=== PATIENT | male | born 1930 | race African-American/Black ===

== ENCOUNTER 2016-05-27 20:03 | Inpatient (IN) | payer OTHER ==
[~2016-05-27] VITALS: Ht 175.3 cm; Wt 55.6 kg
--- NOTE | ~2016-05-27 | EKG ---
[address] [address] ELECTROCARDIOGRAM REPORT Name: ELIZ GRIFFIN Room #: 439-P ADM IN M.R.#: [id number] Admission: 05/27/16 Attend Phys: Aditya Soria MD Discharge: Date of : 29 Report #: [id number] THIS REPORT FOR: //name// [facility] ED Test Date: 2016-05-27 Test Time: 20:13:59 Pat Name: ELIZ GRIFFIN Department: Room: 439 Gender: M Sanitation Worker: MELANY : 1930 Requested By: Cynthia Dang Order Number: [id number] MD: Brennan Soler Measurements Intervals [place] Rate: 121 P: 0 SD: 129 QRS: 8 QRSD: 94 T: 207 QT: 365 QTc: 518 Interpretive Statements Multifocal atrial tachycardia Nonspecific ST and T-wave abnormality Prolonged QT interval No previous ECG available for comparison Electronically Signed On 05-28-2016 7:44:05 SENIOR CONTRACTS ADMINISTRATOR by Brennan Soler [email or web address] <ELECTRONICALLY SIGNED> By: Brennan Soler MD, [facility] 05/28/16 0744 12 12 Brennan Soler MD, FACC /EPI
--- NOTE | ~2016-05-27 | HC ---
[facility] [place] [address] [place] [address] CONSULTATION Name: ELIZ GRIFFIN Room #: 439-P ADM IN M.R.#: [id number] Admission: 05/27/16 Attend Phys: Aditya Soria MD Discharge: Date of : 29 Report #: [id number] THIS REPORT FOR: //name// CC: Aditya Turner INDICATION FOR CONSULTATION: Acute on top of chronic kidney disease. REASON FOR PRESENTATION: Sent via EMS from his nursing facility due to acute mental status issues. HISTORY OF PRESENT ILLNESS: Unfortunately, the patient is not able to provide me with history. It is listed that he has Alzheimer disease. He had been in the [facility] and was being treated for flu per the records. He is minimally responsive at the current time. I am not really sure what his baseline is, but it does look like that he carries a diagnosis of dementia, as I have stated. He had some change in his mental status yesterday and was brought to the emergency room for further evaluation and management, where he was found to be in acute kidney injury with high BUN, creatinine and hypernatremia. All of the information was obtained from the chart. PAST MEDICAL HISTORY: Listed under his rehab facility diagnoses: 1. Alzheimer disease. 2. Chronic kidney disease with a baseline creatinine of around 2.3 as of 2014. 3. Hyperlipidemia. 4. Type 2 diabetes mellitus. 5. Anemia. 6. Anxiety. 7. Status post right hip hemiarthroplasty after a fall. ALLERGIES: No known drug allergies listed. MEDICATIONS ON PRESENTATION: 1. MS Contin. 2. Potassium. 3. Aspirin. 4. Glipizide. 5. Lasix. 6. Lipitor. 7. Lisinopril. 8. Namenda. 9. Tamiflu. 10. Wellbutrin. 11. Metoprolol. FAMILY HISTORY: Unobtainable given the patient's mental status and the unavailability of family members. [facility] [address] [place] [address] CONSULTATION Name: ELIZ GRIFFIN Room #: 439-[facility] IN [facility].#: [id number] Admission: 05/27/16 Attend Phys: Aditya Soria MD Discharge: Date of : 29 Report #: [id number] SOCIAL HISTORY: No drug or alcohol abuse. He stays in the nursing facility. REVIEW OF SYSTEMS: Unobtainable given the patient's mental status. PHYSICAL EXAMINATION: GENERAL: The patient is disoriented, confused and minimally communicative. He is cachectic, lethargic, emaciated with extreme loss of muscle mass. HEAD AND NECK: Dry mucous membrane. CHEST: Clear to auscultation bilaterally, with no crackles. CARDIOVASCULAR: No rub detected. ABDOMEN: Soft, nontender, with no hepatosplenomegaly. LOWER EXTREMITIES: No edema, with again muscle mass loss noted. LABORATORY DATA: Laboratory values reviewed. White blood cell count 11.3. Sodium was 160; BUN is 88, down from 91 and creatinine is down to 3.7 from 4.1. ASSESSMENT, IMPRESSION AND PLAN: 1. Hypernatremia. 2. Acute kidney injury. 3. Chronic kidney disease. 4. Hypertension. 5. Alzheimer disease. 6. Leukocytosis. 7. The patient's hypernatremia and acute kidney injury is well explained by his current volume status exacerbated by decreased p.o. intake while taking Lasix. 8. Discontinue Lasix. 9. Start D5W and increase the rate of the D5W. 10. Strict input and output. 11. Cultures are still pending. 12. Continue with the treatment of his flu. 13. Continue to address his other comorbid conditions and issues. I expect that his kidney function and his sodium should start to improve in the next 24 hours. He does carry a diagnosis of chronic kidney disease and the most recent creatinine of 2.5 as of 2014. <ELECTRONICALLY SIGNED> By: Momo Urbina MD 05/28/16 1030 0956 1027 Momo Urbina MD /nt
[2016-05-27 20:03] VITALS: BP 142/106
[~2016-05-27 20:03] MED LIST: AMLODIPINE BESY10 MG PO; ARICEPT 5 MG TAB5 MG PO; ASPIR 8181 MG PO; DUONEB 2.5-0.5 M3 ML INH; GLUCOTROL5 MG PO; HYDRALAZINE 2525 MG PO; IRON325 PO; LASIX 40 MG TAB40 M2 PO; LIPITOR 20 MG T20 M1 PO; LISINOPRIL20 MG PO; NAMENDA 10 MG T10 MG PO; NOVOLOG100 UNIT/1 SUBQ; PERCOCET PO; POTASSIUM20 PO; SENOKOT-S1 TA1 PO; TOPROL XL25 MG PO; WELLBUTRIN SR150 MG PO
[2016-05-27] MEDS ORDERED: GLUCOTROL5 MG PO (20:18)
[2016-05-27] MEDS ORDERED: MILK OF MA2400 MG/10 PO (20:19)
[2016-05-27] MEDS ORDERED: TAMIFLU75 MG PO (20:20)
[2016-05-27 20:45] LABS: HEMATOCRIT 45.4 % (42.0-52.0); HEMOGLOBIN 14.6 gm/dL (14.0-18.0); MCH 27.4 pg (26.0-34.0); MCHC 32.1 % (28.0-37.0); MCV 85.3 fL (80.0-100.0); PLATELET COUNT 258 thou/uL (150-400); RBC 5.33 mil/uL (4.50-6.00); RDW 17.3 % (10.5-14.5); WBC 11.3 thou/uL (4.0-11.0)
[2016-05-27 20:47] LABS: MANUAL DIFF YES
[2016-05-27 20:58] LABS: CALCIUM 8.7 mg/dL (8.5-10.1); CREATININE 4.1 mg/dL (0.6-1.3); POTASSIUM 4.3 mmol/L (3.5-5.1)
[2016-05-27 21:07] LABS: ABSOLUTE NEUTROPHILS 10.1 thou/uL (1.4-8.2); ANISOCYTOSIS 1+; POIKILOCYTOSIS SLIGHT; POLYCHROMASIA OCCASIONAL; TOTAL CELL COUNT 100
[2016-05-27 21:41] LABS: ICTOTEST (BILI CONFIRMATORY) Negative (Negative); URINE BILIRUBIN NEGATIVE (Negative); URINE BLOOD TRACE (Negative); URINE COLOR YELLOW; URINE GLUCOSE-RANDOM* NEGATIVE (Negative); URINE KETONES NEGATIVE (Negative); URINE LEUKOCYTES-REFLEX NEGATIVE (Negative); URINE PROTEIN (DIPSTICK) 3+ (Negative); URINE SPECIFIC GRAVITY >= 1.030 (1.003-1.035); URINE UROBILINOGEN 0.2 E.U./dl (0.2-1.0)
[2016-05-27 21:49] LABS: CASTS None Seen /LPF (None Seen); CRYSTALS None Seen /LPF (None Seen); SQUAMOUS 0-3 Few /LPF (0-3)
[2016-05-27 21:55] LABS: URINE RBC 0-2 Rare /HPF (0-2); URINE WBC-REFLEX 0-5 Rare /HPF (0-5)
[2016-05-27 22:33] VITALS: BP 144/102
[2016-05-27 22:45] VITALS: BP 137/99
[2016-05-28] MEDS ORDERED: WELLBUTRIN XL300 MG PO (01:31)
[2016-05-28 03:30] VITALS: BP 145/99
[2016-05-28 03:54] LABS: CALCIUM 8.3 mg/dL (8.5-10.1); CREATININE 3.7 mg/dL (0.6-1.3); POTASSIUM 3.8 mmol/L (3.5-5.1)
[2016-05-28 08:20] VITALS: BP 145/110
[2016-05-28 16:14] VITALS: BP 137/90
[2016-05-28 20:18] VITALS: BP 118/56
[2016-05-29 02:38] VITALS: BP 139/74
[2016-05-29 08:00] VITALS: BP 130/76
[2016-05-29 11:51] LABS: HEMATOCRIT 42.5 % (42.0-52.0); HEMOGLOBIN 13.4 gm/dL (14.0-18.0); MCH 27.3 pg (26.0-34.0); MCHC 31.5 % (28.0-37.0); MCV 86.7 fL (80.0-100.0); PLATELET COUNT 244 thou/uL (150-400); RBC 4.91 mil/uL (4.50-6.00); RDW 16.9 % (10.5-14.5); WBC 11.2 thou/uL (4.0-11.0)
[2016-05-29 11:54] LABS: MANUAL DIFF YES
[2016-05-29 12:00] VITALS: BP 110/70
[2016-05-29 12:02] LABS: ALBUMIN 2.3 g/dL (3.4-5.0); CALCIUM 8.4 mg/dL (8.5-10.1); CREATININE 3.2 mg/dL (0.6-1.3); PHOSPHORUS 2.4 mg/dL (2.5-4.9); POTASSIUM 3.3 mmol/L (3.5-5.1)
[2016-05-29 12:32] LABS: ABSOLUTE NEUTROPHILS 10.1 thou/uL (1.4-8.2); ANISOCYTOSIS 1+; TOTAL CELL COUNT 100
[2016-05-29 16:00] VITALS: BP 109/65
[2016-05-29 19:45] VITALS: BP 123/80
[2016-05-30 04:27] VITALS: BP 123/56
[2016-05-30 07:40] LABS: HEMATOCRIT 41.9 % (42.0-52.0); HEMOGLOBIN 13.4 gm/dL (14.0-18.0); MCH 27.6 pg (26.0-34.0); MCHC 31.9 % (28.0-37.0); MCV 86.4 fL (80.0-100.0); RBC 4.85 mil/uL (4.50-6.00); RDW 17.2 % (10.5-14.5); WBC 11.3 thou/uL (4.0-11.0)
[2016-05-30 08:00] VITALS: BP 123/73
[2016-05-30 08:03] LABS: ALBUMIN 2.3 g/dL (3.4-5.0); CALCIUM 7.9 mg/dL (8.5-10.1); CREATININE 2.9 mg/dL (0.6-1.3); PHOSPHORUS 3.2 mg/dL (2.5-4.9)
[2016-05-30 12:00] VITALS: BP 116/77
[2016-05-30 16:00] VITALS: BP 114/90
[2016-05-30 20:00] VITALS: BP 122/80
[2016-05-31 04:00] VITALS: BP 111/72
[2016-05-31 05:55] LABS: HEMATOCRIT 38.2 % (42.0-52.0); HEMOGLOBIN 12.2 gm/dL (14.0-18.0); MCH 27.3 pg (26.0-34.0); MCHC 31.9 % (28.0-37.0); MCV 85.7 fL (80.0-100.0); RBC 4.46 mil/uL (4.50-6.00); RDW 16.7 % (10.5-14.5); WBC 10.7 thou/uL (4.0-11.0)
[2016-05-31 06:22] LABS: ALBUMIN 2.1 g/dL (3.4-5.0); CALCIUM 7.7 mg/dL (8.5-10.1); CREATININE 2.7 mg/dL (0.6-1.3); PHOSPHORUS 2.9 mg/dL (2.5-4.9)
[2016-05-31 07:49] LABS: POTASSIUM 3.4 mmol/L (3.5-5.1)
[2016-05-31 08:00] VITALS: BP 122/80
[2016-05-31 12:00] VITALS: BP 121/77
[2016-05-31 16:00] VITALS: BP 115/76
[2016-05-31 22:30] VITALS: BP 130/86
[2016-06-01 04:25] VITALS: BP 98/70
[2016-06-01 05:21] LABS: HEMATOCRIT 39.8 % (42.0-52.0); HEMOGLOBIN 12.7 gm/dL (14.0-18.0); MCH 27.6 pg (26.0-34.0); MCV 86.2 fL (80.0-100.0); RBC 4.62 mil/uL (4.50-6.00); RDW 16.7 % (10.5-14.5); WBC 10.4 thou/uL (4.0-11.0)
[2016-06-01 05:31] LABS: CALCIUM 7.3 mg/dL (8.5-10.1); CREATININE 2.5 mg/dL (0.6-1.3)
[2016-06-01 08:00] VITALS: BP 120/67
[2016-06-01 12:00] VITALS: BP 110/81
[2016-06-01] MEDS ORDERED: TAMIFLU30 MG PO (15:40)
[2016-06-01 16:00] VITALS: BP 131/70
== END 2016-06-01 16:55 | DRG 682 ==
LOC: ER 20:03 → 4S 22:07 → EROBS 22:07 → 4S 22:32
PROVIDERS: Emergency Medicine; Hospitalist; Nurse Practitioner Acute Care
DX: N17.0 Acute kidney failure with tubular necrosis (principal); G93.41 Metabolic encephalopathy; E43 Unspecified severe protein-calorie malnutrition; E87.0 Hyperosmolality and hypernatremia; I50.32 Chronic diastolic (congestive) heart failure; I13.0 Hypertensive heart and chronic kidney disease with heart failure and stage 1 through stage 4 chronic kidney disease, or unspecified chronic kidney disease; Z68.1 Body mass index [BMI] 19.9 or less, adult; G30.9 Alzheimer's disease, unspecified; F02.80 Dementia in other diseases classified elsewhere, unspecified severity, without behavioral disturbance, psychotic disturbance, mood disturbance, and anxiety; N18.4 Chronic kidney disease, stage 4 (severe); E87.6 Hypokalemia; E86.0 Dehydration; F80.82 Social pragmatic communication disorder; J09.X2 Influenza due to identified novel influenza A virus with other respiratory manifestations; E11.22 Type 2 diabetes mellitus with diabetic chronic kidney disease; Z96.641 Presence of right artificial hip joint; Z28.21 Immunization not carried out because of patient refusal
CPT/HCPCS: 10100

== ENCOUNTER 2016-08-20 12:56 | Inpatient (IN) | payer OTHER ==
[2016-08-20] VITALS (8 sets, daily range): BP systolic 97–132; BP diastolic 64–118
[~2016-08-20] VITALS: Ht 172.7 cm; Wt 63.5 kg
--- NOTE | ~2016-08-20 | HC ---
[facility] [place] [address] [place] [address] CONSULTATION Name: GABYELIZ Room #: [facility]- ADM IN M.R.#: [id number] Admission: 08/20/16 Attend Phys: Valente Nagel MD Discharge: Date of : 29 Report #: [id number] THIS REPORT FOR: //name// CC: Machelle Nagel DATE OF SERVICE: 08/20/2016 REASON FOR CONSULTATION: Hypoxemic respiratory failure. REFERRING PROVIDER: Dr. Mark, the emergency department. CHIEF COMPLAINT: Tachypnea and altered mental status. HISTORY OF PRESENT ILLNESS: Our group was asked to see the patient in consultation while hospitalized at [facility]. Case discussed with the emergency department and other healthcare providers. The patient is unable to give history, somewhat somnolent and has history of dementia. He will answer some yes/no questions. An 86-year-old male as mentioned with a history of dementia, no known pulmonary history other than recent admission 3 months ago for influenza to this institution, apparently presented to the emergency department today with complaints of increasing shortness of breath, perhaps some change in mental status, presented to the emergency department on noninvasive positive pressure ventilation with BiPAP. Chest x-ray had shown some new right lower lobe infiltrate. Apparently, he had had similar symptoms a few days ago and had a chest x-ray at a correction facility, where he resides, which also suggested an infiltrate. Unclear if he was started on any antimicrobial therapy at that time. The patient does not have any active cough at this time. Denies any pain in the chest and is resting comfortably on BiPAP. ALLERGIES: None known. OUTPATIENT MEDICATIONS: Include Bupropion, Namenda, metoprolol, amlodipine, aspirin, glipizide, atorvastatin, and lisinopril. PAST MEDICAL HISTORY: 1. Dementia. 2. Chronic renal insufficiency, baseline creatinine mid to high 2s. 3. Hypertension. 4. Hyperlipidemia. 5. Diabetes mellitus type 2. 6. Atherosclerotic peripheral vascular disease. 7. History of congestive heart failure with most recent echocardiogram showing preserved left ventricular function. 8. General debilitation. [facility] [address] [place] [address] CONSULTATION Name: ELIZ GRIFFIN Room #: 245-P [facility] IN .R.#: [id number] Admission: 08/20/16 Attend Phys: Valente Nagel MD Discharge: Date of : 29 Report #: [id number] SOCIAL HISTORY: Difficult to obtain due to his current status. FAMILY HISTORY: Difficult to obtain due to current status. REVIEW OF SYSTEMS: Difficult to obtain, but on some focused questioning, denies any headaches, unclear if he is having dysphagia. Denies any chest pain, not having dyspnea at this time while on BiPAP, denies any abdominal pain and is able to move all extremities, which is generalized weakness. Denies any focal weakness, though some of this history unreliable. PHYSICAL EXAMINATION: VITAL SIGNS: Temperature is 99.0, pulse 90 and regular, respiratory rate in the 20s, on BiPAP, and blood pressure 99/69. GENERAL: This is an elderly male, does not appear in distress, somnolent, but arousable. Will not stay alert without conscious stimulation. ENT: Not assessed due to BiPAP. NECK: Supple, no lymphadenopathy. LUNGS: Clear anteriorly, did not listen posteriorly. CARDIOVASCULAR: Heart regular. No murmurs noted. ABDOMEN: Slightly distended, but soft. Bowel sounds present. EXTREMITIES: Without edema. They were_ warm with 2+ pulses noted in the posterior tibial dorsalis pedis and radial pulses. INTEGUMENT: Without rash. No skin breakdown noted, although sacral area not evaluated. LABORATORY DATA: Chemistry profile normal except for BUN 63 and creatinine 2.8, glucose 276, calcium 7.9, troponin elevated at 1.22. ProBNP 60,470. INR 1.3. White blood cell count 11,000, hemoglobin 12, hematocrit 35, and platelet count 301. Arterial blood gas was done on BiPAP of 04/15 of the 40% FIO2 with pH 7.43, pCO2 of 31, pO2 of 108, and bicarbonate 20. Chest x-ray reveals some mild hyperinflation suggestive of possible obstructive lung disease with some mildly increased pulmonary vascular markings suggestive of pulmonary edema with right basilar infiltrate also appreciated. IMPRESSION: 1. Healthcare-associated pneumonia. Suspect that he has aspiration, we would evaluate further. 2. Acute hypoxemic respiratory failure, requiring noninvasive positive pressure ventilation. 3. Underlying dementia. 4. Pulmonary edema, suspect diastolic heart dysfunction. 5. Chronic renal insufficiency level 3/4. 6. Elevated troponin. RECOMMEND: 1. Cardiology consultation. [address] [address] CONSULTATION Name: ELIZ GRIFFIN Room #: 245-P ADM IN M.R.#: [id number] Admission: 08/20/16 Attend Phys: Valente Nagel MD Discharge: Date of : 29 Report #: [id number] 2. Diuresis. 3. Continue vancomycin and Zosyn renal dose. 4. Bronchodilators for now, but without significant bronchospasm noted, may be able to decrease frequency if the patient improves. 5. Continue noninvasive positive pressure ventilation, trial often when the patient more alert and less tachypneic. 6. Follow up arterial blood gas and chest radiograph in a.m. 7. No indication for central venous catheter at this time. We will continue with 2 peripheral IVs. Consideration for central venous catheter if the patient declines or has more difficult venous access. 8. Additional recommendations to follow. We will follow along while in ICU. By: [id number] Loki Wills MD /sarah
--- NOTE | ~2016-08-20 | 2DMMODE ---
[facility] [address] [place] [address] 2 D/M-MODE ECHOCARDIOGRAM Name: ELIZ GRIFFIN Room #: 452-P ADM IN M.R.#: [id number] Admission: 08/20/16 Attend Phys: Rosemarie Mae Discharge: Date of : 29 Date of Service: 08/22/16 0819 Report #: [id number] THIS REPORT FOR: //name// APPROVED REPORT Study performed: 08/21/2016 08:46:31 EXAM: Comprehensive 2D, Doppler, and color-flow Echocardiogram Patient Location: Bedside Room #: 245 Blood Pressure: 131/80 mmHg HR: 76 bpm Other Information Study Quality: Excellent Indications Congestive Heart Failure Diabetes Dyspnea Hypertension/HDD 2D Dimensions RVDd: 42.34 mm LVEF(%): 36.52 (>50%) IVSd: 9.59 (7-11mm) LVOT Diam: 21.52 (18-24mm) LVDd: 47.66 mm PWd: 10.78 (7-11mm) Ascending Aorta: 32.21 mm LVDs: 39.31 (25-40mm) IVC: 16.00 mm Aortic Root: 33.62 mm Garner's LVEF: 36.52 % Volumes Left Atrial Volume (Systole) Single Plane 4CH: 42.00 mL Single Plane 2CH: 93.00 mL LA ESV Index: 39.00 mL/m2 Aortic Valve AoV Peak Cipriano.: 1.28 m/s AO Peak Gr.: 6.56 mmHg LV Max P.90 mmHg LV Max: 0.69 m/s Mitral Valve E/A Ratio: 0.7 [facility] [address] [address] 2 D/M-MODE ECHOCARDIOGRAM Name: GABYELIZ Room #: 452-P [facility] IN [facility]#: [id number] Admission: 08/20/16 Attend Phys: Rosemarie Mae Discharge: Date of : 29 Date of Service: 08/22/16 0819 Report #: [id number] MV Decel. Time: 172.78 ms MV E Max Cipriano.: 0.66 m/s MV A Cipriano.: 1.00 m/s MV PHT: 50.11 ms Pulmonary Valve PV Peak Cipriano.: 0.73 m/s PV Peak Gr.: 2.12 mmHg Pulmonary Vein P Vein S: 32.0 m/s P Vein D: 23.6 m/s P Vein A Dur.: 24.4 m/s PVa Duration: 106 Tricuspid Valve TR Peak Cipriano.: 3.55 m/s RAP Estimate: 5.00 mmHg TR Peak Gr.: 50.34 mmHg Left Ventricle The left ventricle is normal size. There is normal left ventricular wall thickness. Left ventricular ejection fraction is severely decreased. LVEF is 30-35%. Grade I - abnormal relaxation pattern. Right Ventricle The right ventricle is normal size. The right ventricular systolic function is normal. Atria Left atrium is dilated. Right atrium is dilated. Aortic Valve Aortic valve is calcified. No aortic regurgitation is present. There is no aortic valvular stenosis. Mitral Valve The mitral valve is normal in structure. Trace mitral regurgitation. No evidence of mitral valve stenosis. Tricuspid Valve The tricuspid valve is normal in structure. There is mild tricuspid regurgitation. The right atrial pressure is estimated at 5 mmHg. There is moderate-severe pulmonary hypertension. The estimated PAP was 55 mmHg. Pulmonic Valve The pulmonary valve is normal in structure. There is no pulmonic [facility] [address] [place] [address] 2 D/M-MODE ECHOCARDIOGRAM Name: GABYELIZ Room #: 452-P [facility] IN [facility].#: [id number] Admission: 08/20/16 Attend Phys: Rosemarie Mae Discharge: Date of : 29 Date of Service: 08/22/16 0819 Report #: [id number] valvular regurgitation. Great Vessels The aortic root is normal in size. IVC is normal in size and collapses >50% with inspiration. Pericardium There is no pericardial effusion. <Conclusion> Left ventricular ejection fraction is severely decreased. LVEF is 30-35%. Global dysfunction Grade I - abnormal relaxation pattern. Both atria are dilated. Trileaflet, mildly sclerotic aortic valve, no aortic valvular stenosis or insufficiency. The mitral valve is normal in structure. Trace mitral regurgitation. There is moderate-severe pulmonary hypertension. The estimated PAP was 55 mmHg. There is no pericardial effusion. <ELECTRONICALLY SIGNED> By: Brennan Soler MD, [facility] 08/22/16818 8 8 Brennan Soler MD, FACC /INF
--- NOTE | ~2016-08-20 | EKG ---
[address] [place] [address] ELECTROCARDIOGRAM REPORT Name: ELIZ GRIFFIN Room #: 245- ADM IN M.R.#: [id number] Admission: 08/20/16 Attend Phys: Valente Nagel MD Discharge: Date of : 29 Report #: [id number] THIS REPORT FOR: //name// [facility] Test Date: 2016-08-21 Test Time: 01:12:23 Pat Name: ELIZ GRIFFIN Department: Room: 245 Gender: M Sr Vice President: med : 1930 Requested By: Yann Mark Order Number: [id number] MD: Brennan Soler Measurements Intervals [place] Rate: 71 P: 48 [place]: 150 QRS: 4 QRSD: 94 T: QT: 471 QTc: 512 Interpretive Statements Chaotic atrial rhythm Low voltage, extremity leads ST and T wave abnormality, consider ischemia Prolonged QT interval Compared to ECG 05/27/2016 20:13:59 ST and T wave abnormalities more pronounced QT interval has lengthened Electronically Signed On 08-21-2016 8:01:30 CDT by Brennan Soler [email or web address] <ELECTRONICALLY SIGNED> By: Brennan Soler MD, [facility] 08/21/16 0801 011 011 Brennan Soler MD, [facility] /EPI
--- NOTE | ~2016-08-20 | EKG ---
[address] [place] [address] ELECTROCARDIOGRAM REPORT Name: ELIZ GRIFFIN Room #: 245-P ADM IN M.R.#: [id number] Admission: 08/20/16 Attend Phys: Valente Nagel MD Discharge: Date of : 29 Report #: [id number] THIS REPORT FOR: //name// [facility] ED Test Date: 2016-08-20 Test Time: 13:01:19 Pat Name: ELIZ GRIFFIN Department: Room: [facility] Gender: M Payroll Analyst: KKODJOVI : 1930 Requested By: Yann Mark Order Number: [id number] MD: Brennan Soler Measurements Intervals [place] Rate: 98 P: 46 MN: 178 QRS: -24 QRSD: 98 T: 229 QT: 397 QTc: 507 Interpretive Statements Multifocal atrial tachycardia Multiform ventricular premature complexes Nonspecific ST and T wave abnormality Compared to ECG 05/27/2016 20:13:59 Ventricular premature complex(es) now present Electronically Signed On 08-21-2016 7:50:10 CDT by Brennan Soler [email or web address] <ELECTRONICALLY SIGNED> By: Brennan Soler MD, [facility] 08/21/16 0750 1301 1301 Brennan Soler MD, [facility] /EPI
--- NOTE | ~2016-08-20 | EKG ---
[address] [place] [address] ELECTROCARDIOGRAM REPORT Name: GABYELIZ Room #: 245- ADM IN M.R.#: [id number] Admission: 08/20/16 Attend Phys: Valente Nagel MD Discharge: Date of : 29 Report #: [id number] THIS REPORT FOR: //name// [facility] Test Date: 2016-08-20 Test Time: 19:12:07 Pat Name: ELIZ GRIFFIN Department: Room: 245 Gender: M Hairspring Adjuster: Rosemarie WHEELER : 1930 Requested By: Yann Mark Order Number: [id number] MD: Brennan Soler Measurements Intervals [place] Rate: 71 P: 57 [place]: 128 QRS: -7 QRSD: 99 T: 147 QT: 443 QTc: 482 Interpretive Statements Chaotic atrial rhythm Borderline low voltage, extremity leads Borderline repolarization abnormality Borderline prolonged QT interval Compared to ECG 05/27/2016 20:13:59 premature ventricular complexes are no longer present Electronically Signed On 08-21-2016 7:57:36 CDT by Brennan Soler [email or web address] <ELECTRONICALLY SIGNED> By: Brennan Soler MD, [facility] 08/21/16 0757 11 11 Brennan Soler MD, [facility] /EPI
--- NOTE | ~2016-08-20 | D ---
[facility] [place] [address] [place] [address] DISCHARGE SUMMARY Name: ELIZ GRIFFIN Room #: 452-P [facility] IN M.R.#: [id number] Admission: 08/20/16 Attend Phys: Valente Nagel MD Discharge: 08/28/16 Date of : 29 Report #: [id number] THIS REPORT FOR: //name// CC: Machelle Nagel DATE OF SERVICE: 08/28/2016 HISTORY OF PRESENT ILLNESS: The patient is an 86-year-old man with multiple medical problems, including dementia, CHF, chronic kidney disease, and hypertension, who was transferred here from the alf for shortness of breath. The patient was found to be in acute respiratory failure secondary to congestive heart failure, as well as pneumonia. Please refer to the admission H and P for details. HOSPITALIZATION COURSE: The patient was hospitalized at [facility]. He was started on appropriate treatment with broad spectrum antibiotics, as well IV diuresis. Cardiac echo was obtained, that showed ejection fraction of 35%. Laundry Tech was consulted. The patient was treated with diuresis. Later during the hospital stay, the patient developed hypernatremia. Lasix was held temporarily, and the patient was treated with gentle IV fluid hydration. Hypernatremia, resolved. The patient's condition overall improved, and oxygen was tapered off. Currently, he is in room air, and his oxygen saturation is normal. Due to multiple medical conditions and advanced dementia, the patient has major debility. He is mostly staying in the bed. His p.o. intake is poor, and he is high risk for the readmission, as well as exacerbation of his chronic conditions. Palliative care team was consulted. After discussing with the family, and given the poor prognosis, the patient's code status was changed to the DNR. Family is considering hospice care when the patient goes back to the alf. Currently, the patient's condition is acceptable for him to be transferred back to the alf. Instructions were provided to encourage p.o. intake. DISCHARGE DIAGNOSES: 1. Acute respiratory failure due to healthcare-associated pneumonia and congestive heart failure exacerbation. Resolved. 2. Congestive heart failure exacerbation, systolic congestive heart failure, now compensated. Ejection fraction is 35% based on current echo. 3. Healthcare-associated pneumonia, clinically much better. The patient is afebrile, and he is on room air. [facility] [address] [place] [address] DISCHARGE SUMMARY Name: ELIZ GRIFFIN Room #: 452-P [facility] IN [facility].#: [id number] Admission: 08/20/16 Attend Phys: Valente Nagel MD Discharge: 08/28/16 Date of : 29 Report #: [id number] 4. Chronic kidney disease stage 3. 5. Advanced dementia. 6. Diabetes mellitus type 2, treated with glipizide, which will be held for now and the patient will be continued on sliding scale insulin only as needed. 7. Severe pulmonary hypertension, pulmonary arterial pressure of 55. DISCHARGE MEDICATIONS: Please refer to the medication reconciliation list. DISPOSITION: The patient is discharged back to the alf. FOLLOWUP PLAN: Follow up with the primary care physician in 1-2 weeks. I spent about 30 minutes to coordinate the patient's discharge from the hospital. <ELECTRONICALLY SIGNED> By: Viri Juarez MD 09/01/16 2227 1316 1400 Viri Juarez MD /nt
--- NOTE | ~2016-08-20 | H ---
[facility] [place] [place] [address] HISTORY AND PHYSICAL Name: ELIZ GRIFFIN Room #: 245-P ADM IN M.R.#: [id number] Admission: 08/20/16 Attend Phys: Valente Nagel MD Discharge: Date of : 29 Report #: [id number] THIS REPORT FOR: //name// CC: Machelle Nagel DATE OF SERVICE: 08/20/2016 CHIEF COMPLAINT: Shortness of breath and hypoxia. HISTORY OF PRESENT ILLNESS: The patient is an 86-year-old male with a history of dementia, CHF, chronic kidney disease, hypertension, and diabetes who was brought into the emergency room secondary to hypoxia. Most of the history was obtained from talking to the ER physician and reviewing his notes from the nursing facility and here. The patient is presently on a BiPAP. He is able to follow some simple commands but not able to give me any good history. The patient was admitted here in May for influenza and acute on chronic renal failure. The patient had an x-ray done a couple of days ago at the senior care, which showed patchy infiltrate bilateral suggesting either pneumonia or pulmonary edema. The patient was found to be hypoxic and also tachypneic. He was brought into the emergency room and placed on a BiPAP. The patient denies any chest pain at present. Workup in the emergency room included a chest x-ray, which showed CHF and also elevated BNP in 60,000. The patient's white count is 10.9. PAST MEDICAL HISTORY: Significant for hypertension, diabetes, dementia, history of chronic kidney disease stage 3, hyperlipidemia, diabetes, depression, advanced arthrosclerotic disease, chronic pulmonary edema, anemia, muscle weakness, anxiety, constipation, edema, and a history of dysphagia too. ALLERGIES: No known drug allergy. HOME MEDICATIONS: According to the nursing note, he has been on aspirin, Norvasc, Wellbutrin, glipizide, Lipitor, lisinopril, Namenda, Toprol-XL, and magnesium hydroxide. SOCIAL HISTORY: Unable to obtain, but according to the old chart, no smoking. REVIEW OF SYSTEMS: Unable to obtain from the patient. FAMILY HISTORY: Unable to obtain. PHYSICAL EXAMINATION: VITAL SIGNS: Reviewed. Blood pressure is 102/78, heart rate of 80 per minute, afebrile, his respiratory rate is 30 per minute, he is presently on a BiPAP, he [facility] [address] [place] [address] HISTORY AND PHYSICAL Name: ELIZ GRIFFIN Room #: 245-P [facility] IN ..#: [id number] Admission: 08/20/16 Attend Phys: Valente Nagel MD Discharge: Date of : 29 Report #: [id number] is saturating 100%. GENERAL: He is currently lethargic, but he does wake up and follow simple commands. EYES: Pupils are only 2 mm, reactive to light. NECK: Supple. JVD is elevated. No bruit, no lymphadenopathy noted. CARDIOVASCULAR: S1 and S2, negative S3. There is also a soft systolic murmur in the left sternal border. CHEST: Bilateral air entry present. There are crackles noted in the right base. ABDOMEN: Soft, bowel sounds present. No mass, no organomegaly, no tenderness. PERIPHERY: There is edema over the dorsum of the feet. No calf tenderness noted. Dorsalis pedis is very feeble bilaterally. NEUROLOGIC: He does wake up and follow simple commands. He is able to move his upper extremity better than the lower extremity. LABORATORY DATA: Reviewed. His BNP is markedly elevated at 60,000. His troponin is 1.22. His AST and ALT are 34 and 17. Albumin is 2.9. BUN and creatinine are 63 and 2.8. His baseline creatinine has been around 2.5. His bicarbonate is 23. ABG showed a pH of 7.43, pCO2 of 31, pO2 of 107 on BiPAP. White count is 10.9 with a hemoglobin of 11.6. Platelet is 301. Differential ____ 86% neutrophils. UA is presently pending. EKG showed sinus rhythm with multiform ventricular premature complex, borderline left axis deviation. Borderline ST elevation anteriorly and prolonged QT interval, QTC is 507. Chest x-ray showed bilateral increasing infiltrate with some vascular congestion ____ edema. There is asymmetry greater on the right with aspiration pneumonia not excluded. ASSESSMENT AND PLAN: 1. Acute respiratory failure secondary to congestive heart failure/ pneumonia. 2. Healthcare-associated pneumonia. The patient will be started on DuoNeb, Zosyn and vancomycin. Follow cultures and adjust antibiotic as needed. Pulmonary will be consulted. 3. Congestive heart failure, most likely acute on chronic diastolic heart failure. We will check an echocardiogram. We will consult cardiology. The patient will be diuresed with IV Lasix. We will repeat a chest x-ray and labs in the morning. 4. Chronic kidney disease stage 4. We will monitor his renal function closely. 5. Elevated troponin, most likely non-ST segment elevation myocardial infarction. The patient will be placed on aspirin and Lovenox. We will consider adding beta-lacey once the blood pressure is little better. We will also obtain echocardiogram. Cardiology will be consulted. 6. Deep venous thrombosis prophylaxis. He will be continued on Lovenox. 7. Diabetes. We will place him on sliding scale insulin at present. We will check on his A1c level. [facility] [address] [place] [address] HISTORY AND PHYSICAL Name: ELIZ GRIFFIN Room #: 245-P [facility] IN M.R.#: [id number] Admission: 08/20/16 Attend Phys: Valente Nagel MD Discharge: Date of : 29 Report #: [id number] 8. We will also check on lipids. Treatment plan was discussed with the nursing staff. <ELECTRONICALLY SIGNED> By: Valente Nagel MD 08/21/16 1006 1542 1657 Valente Nagel MD /nt
[~2016-08-20 12:56] MED LIST changes: +MILK OF MA2400 MG/10 PO; +TAMIFLU30 MG PO; +TAMIFLU75 MG PO; +WELLBUTRIN XL300 MG PO
[2016-08-20 13:23] LABS: HEMATOCRIT 35.2 % (42.0-52.0); HEMOGLOBIN 11.6 gm/dL (14.0-18.0); MCH 28.7 pg (26.0-34.0); PLATELET COUNT 301 thou/uL (150-400); RBC 4.05 mil/uL (4.50-6.00); RDW 16.8 % (10.5-14.5); WBC 10.9 thou/uL (4.0-11.0)
[2016-08-20 13:27] LABS: CALCIUM 7.9 mg/dL (8.5-10.1); CREATININE 2.8 mg/dL (0.7-1.3); POTASSIUM 4.2 mmol/L (3.5-5.1)
[2016-08-20 13:28] LABS: MANUAL DIFF YES
[2016-08-20 13:38] LABS: ALBUMIN 2.9 g/dL (3.4-5.0); TOTAL BILIRUBIN 0.8 mg/dL (<0.1-1.0); TOTAL PROTEIN 7.6 g/dL (6.4-8.2)
[2016-08-20 13:39] LABS: INR 1.3; PROTIME 13.1 Seconds (9.3-11.4)
[2016-08-20 13:42] LABS: TROPONIN-I 1.22 ng/mL (<0.04-0.07)
[2016-08-20 13:42] LABS: ABG SAMPLE TYPE ARTERIAL; BE(vivo) -3.1 mmol/L (-2 to +3); HCO3 20.4 mmol/L (22.0-26.0); LACTATE 1.47 mmol/L (0.5-2.0); O2(CT) 15.9 mL/dL (15.0-23.0); O2Hb 97.2 % (92.0-98.0); PCO2 31.3 mmHg (35.0-45.0); PO2 107.6 mmHg (80.0-100.0); STICK SITE R.RADIAL; pH 7.431 (7.360-7.450); sO2 98.1 % (92.0-98.0); tCO2 21.3 mmol/L (24.0-30.0)
[2016-08-20 13:43] LABS: Pressure Support 12 cm H20; VDS BIPAP SPONT TIMED cc
[2016-08-20 14:05] LABS: ABSOLUTE NEUTROPHILS 9.4 thou/uL (1.4-8.2); ANISOCYTOSIS 1+; BURR CELLS OCCASIONAL; OVALOCYTES OCCASIONAL; POIKILOCYTOSIS 1+; POLYCHROMASIA SLIGHT; TOTAL CELL COUNT 100
[2016-08-20 16:30] LABS: CHOLESTEROL 99 mg/dL (<200); HDL CHOLESTEROL 42 mg/dL (>40); LDL CHOLESTEROL 43 mg/dL (<100); TC:HDL 2.4 Ratio (Not establshd); TRIGLYCERIDE 71 mg/dL (<150); VLDL 14 mg/dL (<40)
[2016-08-20 21:06] LABS: URINE BILIRUBIN NEGATIVE (Negative); URINE BLOOD 3+ (Negative); URINE COLOR YELLOW; URINE GLUCOSE-RANDOM* NEGATIVE (Negative); URINE KETONES NEGATIVE (Negative); URINE NITRITE NEGATIVE (Negative); URINE PROTEIN (DIPSTICK) TRACE (Negative); URINE UROBILINOGEN 0.2 E.U./dl (0.2-1.0)
[2016-08-20 21:21] LABS: SQUAMOUS 0-3 Few /LPF (0-3)
[2016-08-20 21:22] LABS: COARSE GRANULAR CASTS 0-3 Few /LPF (None Seen); HYALINE CASTS 4-10 Moderate /LPF (None Seen); URINE WBC 6-15 Few /HPF (0-5)
[2016-08-21] VITALS (20 sets, daily range): BP systolic 100–134; BP diastolic 63–93
[2016-08-21 00:33] LABS: MAGNESIUM 2.8 mg/dL (1.8-2.4)
[2016-08-21 00:40] LABS: TROPONIN-I 0.92 ng/mL (<0.04-0.07)
[2016-08-21 04:37] LABS: HEMATOCRIT 31.2 % (42.0-52.0); HEMOGLOBIN 10.1 gm/dL (14.0-18.0); MCH 28.3 pg (26.0-34.0); MCHC 32.3 g/dL (28.0-37.0); MCV 87.7 fL (80.0-100.0); RBC 3.55 mil/uL (4.50-6.00); RDW 16.9 % (10.5-14.5); WBC 9.4 thou/uL (4.0-11.0)
[2016-08-21 05:18] LABS: CALCIUM 7.4 mg/dL (8.5-10.1); CREATININE 2.9 mg/dL (0.7-1.3); POTASSIUM 3.9 mmol/L (3.5-5.1)
[2016-08-21 05:21] LABS: ABG SAMPLE TYPE ARTERIAL; BE(vivo) -3.7 mmol/L (-2 to +3); HCO3 20.4 mmol/L (22.0-26.0); O2(CT) 15.2 mL/dL (15.0-23.0); O2Hb 96.4 % (92.0-98.0); PCO2 33.9 mmHg (35.0-45.0); PO2 103.5 mmHg (80.0-100.0); STICK SITE L.BRACHIAL; pH 7.398 (7.360-7.450); sO2 97.8 % (92.0-98.0); tCO2 21.5 mmol/L (24.0-30.0)
[2016-08-21 05:22] LABS: ABG COMMENT BIPAP12/6 8 35%; Pressure Support 12 cm H20
[2016-08-22 03:49] LABS: HEMATOCRIT 36.1 % (42.0-52.0); HEMOGLOBIN 11.6 gm/dL (14.0-18.0); MCHC 32.2 g/dL (28.0-37.0); MCV 87.1 fL (80.0-100.0); PLATELET COUNT 320 thou/uL (150-400); RBC 4.15 mil/uL (4.50-6.00); RDW 17.1 % (10.5-14.5); WBC 10.6 thou/uL (4.0-11.0)
[2016-08-22 04:00] VITALS: BP 126/84
[2016-08-22 04:00] LABS: MANUAL DIFF YES
[2016-08-22 04:04] LABS: CALCIUM 7.5 mg/dL (8.5-10.1); CREATININE 2.7 mg/dL (0.7-1.3); MAGNESIUM 2.5 mg/dL (1.8-2.4); POTASSIUM 3.3 mmol/L (3.5-5.1)
[2016-08-22 04:51] LABS: ABSOLUTE NEUTROPHILS 8.4 thou/uL (1.4-8.2); ANISOCYTOSIS 1+; TOTAL CELL COUNT 100
[2016-08-22 07:50] VITALS: BP 132/72
[2016-08-22 11:09] VITALS: BP 122/79
[2016-08-22 15:53] VITALS: BP 127/83
[2016-08-22 19:35] VITALS: BP 115/82
[2016-08-22 22:10] LABS: INFLUENZA B Negative (Negative); METAPNEUMOVIRUS Negative (Negative)
[2016-08-23 03:50] VITALS: BP 121/67
[2016-08-23 07:33] VITALS: BP 144/85
[2016-08-23 08:02] LABS: HEMATOCRIT 39.3 % (42.0-52.0); HEMOGLOBIN 12.6 gm/dL (14.0-18.0); MCH 27.9 pg (26.0-34.0); MCHC 32.1 g/dL (28.0-37.0); MCV 86.9 fL (80.0-100.0); PLATELET COUNT 342 thou/uL (150-400); RBC 4.53 mil/uL (4.50-6.00); RDW 16.9 % (10.5-14.5); WBC 12.3 thou/uL (4.0-11.0)
[2016-08-23 08:05] LABS: MANUAL DIFF YES
[2016-08-23 08:12] LABS: CALCIUM 8.6 mg/dL (8.5-10.1); CREATININE 2.5 mg/dL (0.7-1.3); POTASSIUM 3.7 mmol/L (3.5-5.1)
[2016-08-23 08:30] LABS: ABSOLUTE NEUTROPHILS 10.3 thou/uL (1.4-8.2); POLYCHROMASIA OCCASIONAL; TOTAL CELL COUNT 100
[2016-08-23 08:31] LABS: ANISOCYTOSIS 1+
[2016-08-23 11:38] VITALS: BP 125/67
[2016-08-23 16:30] VITALS: BP 111/75
[2016-08-23 19:00] VITALS: BP 124/83
[2016-08-24 03:37] VITALS: BP 142/77
[2016-08-24 05:43] LABS: CALCIUM 8.1 mg/dL (8.5-10.1); CREATININE 2.7 mg/dL (0.7-1.3)
[2016-08-24 08:38] VITALS: BP 102/63
[2016-08-24 11:11] VITALS: BP 117/78
[2016-08-24 15:46] VITALS: BP 131/74
[2016-08-24 20:16] VITALS: BP 132/80
[2016-08-25 04:40] VITALS: BP 136/85
[2016-08-25 05:48] LABS: CALCIUM 8.3 mg/dL (8.5-10.1); CREATININE 2.5 mg/dL (0.7-1.3); POTASSIUM 3.4 mmol/L (3.5-5.1)
[2016-08-25 07:30] VITALS: BP 156/87
[2016-08-25 12:20] VITALS: BP 107/76
[2016-08-25 15:55] VITALS: BP 101/66
[2016-08-26 03:49] VITALS: BP 143/88
[2016-08-26 05:34] LABS: ABSOLUTE NEUTROPHILS 8.2 thou/uL (1.4-8.2); BASOPHILS 1.2 % (0.0-2.0); EOSINOPHILS 6.2 % (0.0-3.0); HEMATOCRIT 38.5 % (42.0-52.0); HEMOGLOBIN 12.2 gm/dL (14.0-18.0); LYMPHOCYTES 12.8 % (24.0-44.0); MCH 27.5 pg (26.0-34.0); MCHC 31.6 g/dL (28.0-37.0); MCV 87.1 fL (80.0-100.0); PLATELET COUNT 385 thou/uL (150-400); POLYS 73.8 % (36.0-66.0); RBC 4.42 mil/uL (4.50-6.00); RDW 16.9 % (10.5-14.5); WBC 11.1 thou/uL (4.0-11.0)
[2016-08-26 05:40] LABS: MANUAL DIFF NO
[2016-08-26 05:50] LABS: CALCIUM 8.4 mg/dL (8.5-10.1); CREATININE 2.2 mg/dL (0.7-1.3)
[2016-08-26 05:59] LABS: POTASSIUM 2.7 mmol/L (3.5-5.1)
[2016-08-26 08:10] VITALS: BP 138/87
[2016-08-26 12:09] VITALS: BP 136/80
[2016-08-26 16:19] VITALS: BP 127/56
[2016-08-26 20:26] VITALS: BP 123/88
[2016-08-27 04:59] VITALS: BP 143/86
[2016-08-27 06:23] LABS: CALCIUM 8.2 mg/dL (8.5-10.1); CREATININE 2.1 mg/dL (0.7-1.3); POTASSIUM 3.6 mmol/L (3.5-5.1)
[2016-08-27 08:45] VITALS: BP 129/76
[2016-08-27 12:24] VITALS: BP 124/86
[2016-08-27 15:54] VITALS: BP 130/89
[2016-08-27 19:49] VITALS: BP 144/94
[2016-08-28 04:26] VITALS: BP 139/88
[2016-08-28 06:40] LABS: CALCIUM 7.9 mg/dL (8.5-10.1); CREATININE 1.8 mg/dL (0.7-1.3); POTASSIUM 3.6 mmol/L (3.5-5.1)
[2016-08-28 08:42] VITALS: BP 136/82
[2016-08-28 12:44] VITALS: BP 134/97
[2016-08-28] MEDS ORDERED: CARVEDILOL3.125 MG PO (13:21)
[2016-08-28] MEDS ORDERED: VIBRAMYCIN 100100 M2 PO (13:21)
[2016-08-28] MEDS ORDERED: DUONEB 2.5-0.5 M3 ML INH (13:21)
[2016-08-28] MEDS ORDERED: HUMALOG100 UNIT/1 SUBQ (13:21)
[2016-08-28] MEDS ORDERED: AMLODIPINE BESYL5 M1 PO (13:21)
[2016-08-28] MEDS ORDERED: AUGMENTIN 500-1 EACH PO (13:21)
== END 2016-08-28 16:59 | DRG 177 ==
LOC: ER 12:56 → ICU 14:27 → EROBS 14:27 → ICU 16:00 → 4W 08-21 18:33
PROVIDERS: Emergency Medicine; Family Medicine; Internal Medicine; Internal Medicine Endocrinology, Diabetes & Metabolism; Internal Medicine Pulmonary Disease
PROC: 5A09357 Assistance with Respiratory Ventilation, Less than 24 Consecutive Hours, Continuous Positive Airway Pressure (ICD-10-PCS; principal; 2016-08-20)
DX: J69.0 Pneumonitis due to inhalation of food and vomit (principal); J96.01 Acute respiratory failure with hypoxia; I50.43 Acute on chronic combined systolic (congestive) and diastolic (congestive) heart failure; E43 Unspecified severe protein-calorie malnutrition; I13.0 Hypertensive heart and chronic kidney disease with heart failure and stage 1 through stage 4 chronic kidney disease, or unspecified chronic kidney disease; E87.0 Hyperosmolality and hypernatremia; N18.4 Chronic kidney disease, stage 4 (severe); N17.9 Acute kidney failure, unspecified; G30.9 Alzheimer's disease, unspecified; F02.80 Dementia in other diseases classified elsewhere, unspecified severity, without behavioral disturbance, psychotic disturbance, mood disturbance, and anxiety; E78.5 Hyperlipidemia, unspecified; E11.22 Type 2 diabetes mellitus with diabetic chronic kidney disease; F32.9 Major depressive disorder, single episode, unspecified; F41.9 Anxiety disorder, unspecified; K59.00 Constipation, unspecified; E11.51 Type 2 diabetes mellitus with diabetic peripheral angiopathy without gangrene; R53.81 Other malaise; I27.2 Other secondary pulmonary hypertension; E87.6 Hypokalemia; Z68.21 Body mass index [BMI] 21.0-21.9, adult
CPT/HCPCS: 10045; 10078

== ENCOUNTER 2016-09-14 06:06 | Inpatient (IN) | payer OTHER ==
[~2016-09-14] VITALS: Ht 175.3 cm; Wt 68.7 kg
--- NOTE | ~2016-09-14 | HC ---
[facility] [place] [address] CONSULTATION Name: CARLOTA GRIFFINR Room #: 450-P ADM IN M.R.#: [id number] Admission: 09/14/16 Attend Phys: Machelle Turner MD Discharge: Date of : 29 Report #: [id number] THIS REPORT FOR: //name// CC: Machelle Turner DATE OF SERVICE: 09/14/2016 REASON FOR CONSULTATION: Acute respiratory failure. Forty minutes critical care time. IMPRESSION: 1. Acute respiratory failure. 2. Probable aspiration pneumonia. 3. Metabolic acidosis/lactic acidosis. 4. Hyperchloremia. 5. Acute on chronic renal failure. 7. Elevated troponin. 8. Anemia, normocytic. 9. Large left middle cerebral artery infarct. 10. History of MRSA. 11. Severe pulmonary hypertension. 12. Cardiomyopathy with acute on chronic congestive heart failure. 13. Diabetes. 14. Dementia. PLAN: Discussed with the family by phone and nursing. We will try BiPAP and antibiotics. We will ensure he is comfortable. When I arrived, he was a do not intubate. Because of his status, I feel intubation would be a vital part of his resuscitation and we will do a do not resuscitate at this time. We will keep him on our critical care telemetry unit. HISTORY OF PRESENT ILLNESS: An 86-year-old male with history of dementia, old nodes reviewed, recently discharged with healthcare-associated pneumonia, MRSA nasal, pulmonary hypertension, CHF, CKD, diabetes, comes in through the Emergency Room today with found to have right side flaccid. The patient is unable to give history at this time. Per chart, home meds, I believe include DuoNeb, Coreg, insulin, metoprolol, aspirin. SOCIAL HISTORY: Per chart. FAMILY HISTORY: Not obtainable at this time. REVIEW OF SYSTEMS: Positive per dementia, hypertension, hyperlipidemia, diabetes, CHF, debilitation. [facility] [address] [place] [address] CONSULTATION Name: ELIZ GRIFFIN Room #: 450-P [facility] IN [facility]#: [id number] Admission: 09/14/16 Attend Phys: Machelle Turner MD Discharge: Date of : 29 Report #: [id number] PHYSICAL EXAMINATION: VITAL SIGNS: The patient is tachypneic, temperature 98.7, pulse 99, blood pressure 178/109. Not moving right side. LUNGS: Tachypneic, coarse. HEART: Tachy. ABDOMEN: Bowel sounds present. Soft. EXTREMITIES: Showed no edema. LABORATORY DATA: White count 7.3, hemoglobin 12.3. INR 1.2. BUN 38, creatinine 2.3. ABG ____, pCO2 of 23, pO2 of 40. Respiratory rate 16 on 2.5 liters. We will follow closely with you. <ELECTRONICALLY SIGNED> By: Dave Keane MD 09/16/16 2316 2219 0244 Dave Keane MD /sarah
--- NOTE | ~2016-09-14 | HC ---
[facility] [place] [address] [place] [address] CONSULTATION Name: GABYELIZ Room #: 450-P ADM IN M.R.#: [id number] Admission: 09/14/16 Attend Phys: Machelle Turner MD Discharge: Date of : 29 Report #: [id number] THIS REPORT FOR: //name// CC: Machelle Turner HISTORY OF PRESENT ILLNESS: The patient is an 86-year-old gentleman, who was transferred from the [facility] after it was noted that he had right-sided weakness. The patient came to the Emergency Room and I received a call approximately 4 hours into the event. The call was received from the Emergency Room physician. The initial CT scan of the head demonstrated only moderate atrophy, but no acute cerebral process. Review of the Emergency Room physician's note states that his sister who was his DPOA refused TPA for the patient. The patient's great nephew is at the bedside. He states that the patient's eldest sister who turned 100 this July is the DPOA for the patient. Apparently, the patient had dementia and had been living in a [facility]. The patient is unable to give any history at this time. PAST MEDICAL HISTORY: Alzheimer disease, chronic renal insufficiency, hypertension, hyperlipidemia, non-insulin dependent diabetes. FAMILY HISTORY: Unknown. MEDICATIONS: At home included bupropion XL 300 mg daily, Namenda 10 mg b.i.d., aspirin 81 mg daily, atorvastatin 20 mg daily, milk of magnesia 30 mL daily, Metoprolol XL 25 mg daily, amlodipine 10 mg daily, and glipizide 5 mg daily. ALLERGIES: None. PHYSICAL EXAMINATION: VITAL SIGNS: Temperature is 36.5, pulse rate 86, respiratory rate 28, respiratory pattern labored, blood pressure 120/90 and pulse oximetry 94 on 2 liters nasal cannula. NEUROLOGIC: Cranial nerves demonstrate deviation of the eyes to the left. Motor exam demonstrates no movement of the right upper and lower extremity, they are flaccid. Reflexes are symmetrical; however, the right plantar response is extensor and the left is flexor. Coordination and gait cannot be tested. LABORATORY DATA: Hematology: White blood cell count 7.3, hemoglobin 12.8, hematocrit 38.8, MCV 87, and platelet count 286,000. INR 1.2. Urinalysis 2+ protein, 1+ bilirubin. Chemistry: Sodium 144, potassium 3.8, chloride 110, carbon dioxide 23, BUN 38, creatinine 2.3, GFR 33, glucose 172, and calcium 8.8. ASSESSMENT: Although, the initial CT of the head was unremarkable for an acute process, the patient appears to have had a large left middle cerebral artery infarct. A CT scan of the head will be ordered for tomorrow. The patient [address] [address] CONSULTATION Name: ELIZ GRIFFIN Room #: 450-P [facility] IN M.R.#: [id number] Admission: 09/14/16 Attend Phys: Machelle Turner MD Discharge: Date of : 29 Report #: [id number] should have carotid ultrasound and echocardiogram. At this point, he is a full code. I spoke to his great nephew who is at the bedside and explained that we would know more within the next 48 hours as to how the patient would do, but I did explain that given the examination, I doubted the patient would make a significant recovery. Hopefully, I will be able to speak to his DPOA tomorrow and explain this. I thank you for your kind referral of the patient and we will continue to follow him with you. It should be discussed with his DPOA, so that she understands that although the patient may survive this event <ELECTRONICALLY SIGNED> By: Elida Riddle DO 09/17/16 1024 1119 2333 Elida Riddle DO /nt
--- NOTE | ~2016-09-14 | 2DMMODE ---
[facility] [place] [address] 2 D/M-MODE ECHOCARDIOGRAM Name: CARLOTA GRIFFINR Room #: 450-P ADM IN M.R.#: [id number] Admission: 09/14/16 Attend Phys: Machelle Turner MD Discharge: Date of : 29 Date of Service: 09/15/16 1021 Report #: [id number] THIS REPORT FOR: //name// APPROVED REPORT Study performed: 09/15/2016 08:38:44 EXAM: Limited 2D, Doppler, and color-flow Echocardiogram Patient Location: Bedside Room #: 450 Blood Pressure: 123/77 mmHg HR: 87 bpm Rhythm: NSR, frequent PVC's Other Information Study Quality: Adequate/Limited patient mobility, patient on BiPAP Indications CVA. Hx: CHF, CM, HTN, HLP, DM. (Complete echo done 08/25/16) Echo Enhancing Agent Indication: Rule out Shunt Agent/Amount Used: Agitated Saline cc 2D Dimensions LVEF(%): 26.59 (>50%) LVDd: 48.18 mm LVDs: 42.23 (25-40mm) Garner's LVEF: 26.59 % Tricuspid Valve TR Peak Cipriano.: 3.60 m/s RAP Estimate: 10.00 mmHg TR Peak Gr.: 51.90 mmHg RVSP: 62.00 mmHg Left Ventricle Left ventricle is grossly normal size. Left ventricular systolic function is severely decreased. LVEF is 25-30%. Right Ventricle Right ventricle is hypokinetic. [facility] [address] [place] [address] 2 D/M-MODE ECHOCARDIOGRAM Name: ELIZ GRIFFIN Room #: 450-P ADM IN M.R.#: [id number] Admission: 09/14/16 Attend Phys: Machelle Turner MD Discharge: Date of : 29 Date of Service: 09/15/16 1021 Report #: [id number] Left atrium is dilated. Injection of bubbles documented an interatrial shunt. Right atrium is dilated. Aortic Valve Aortic valve is calcified. Trace aortic regurgitation. Mitral Valve The mitral valve is mildly thickened. Mild mitral regurgitation. Tricuspid Valve The tricuspid valve is normal in structure. There is mild to moderate tricuspid regurgitation. The right atrial pressure is estimated at 10 mmHg. There is moderate pulmonary hypertension with an estimated PAP of 62mmHg. Great Vessels IVC is normal in size and collapses <50% with inspiration. Pericardium There is no pericardial effusion. <Conclusion> Left ventricle is grossly normal size. LVEF is 25-30%. Right ventricle is hypokinetic. Left atrium is dilated. Right atrium is dilated. Injection of bubbles documented an interatrial shunt. Aortic valve is calcified. Trace aortic regurgitation. The mitral valve is mildly thickened. Mild mitral regurgitation. The tricuspid valve is normal in structure. There is mild to moderate tricuspid regurgitation. The right atrial pressure is estimated at 10 mmHg. There is moderate pulmonary hypertension with an estimated PAP of 62mmHg. <ELECTRONICALLY SIGNED> By: Luis Enrique Ramos MD 09/15/16 1021 1021 1021 Luis Enrique Ramos MD /INF
--- NOTE | ~2016-09-14 | H ---
[facility] [place] [place] [address] HISTORY AND PHYSICAL Name: ELIZ GRIFFIN Room #: 450-P ADM IN M.R.#: [id number] Admission: 09/14/16 Attend Phys: Machelle Turner MD Discharge: Date of : 29 Report #: [id number] THIS REPORT FOR: //name// CC: Machelle Turner DATE OF SERVICE: 09/14/2016 DATE OF ADMISSION: 09/14/2016 CHIEF COMPLAINT: Altered mental status, possible CVA. HISTORY OF PRESENT ILLNESS: The patient is an 86-year-old -Irish male who resides at [facility]. He has had several hospital stays in the past month for pneumonia and most recently urinary tract infection. He was doing relatively well while at the retirement until the morning of admission when he was noted to have altered mental status with right-sided deficits. He was brought to [facility] Emergency Room for evaluation of possible CVA. Workup revealed findings consistent with acute CVA. The family was contacted about possible thrombolysis, and they had opted to forego aggressive thrombolytic therapy. He was given aspirin and has been admitted for further medical management. PAST MEDICAL HISTORY: Anemia of chronic kidney disease stage 3, anxiety disorder, Alzheimer's dementia, atherosclerotic heart disease, congestive heart failure, hypertension, hyperlipidemia, protein-calorie malnutrition, diabetes mellitus type 2 with underlying chronic kidney disease, major depressive disorder and oropharyngeal dysphagia requiring pureed diet with nectar-thickened liquids. ALLERGIES: No known drug allergies. MEDICATIONS: DuoNeb nebulized treatments every 6 hours as needed, Lipitor 20 mg daily, lisinopril 20 mg daily, milk of magnesia 30 mL daily, Namenda 10 mg b.i.d., Toprol-XL 24 mg daily, amlodipine 10 mg daily, aspirin 81 mg daily, bupropion XL 300 mg daily, glipizide 5 mg daily. FAMILY HISTORY: Noncontributory. SOCIAL HISTORY: The patient resides at [facility]. He does not use tobacco or alcohol. REVIEW OF SYSTEMS: Review of systems cannot be elicited at this time; however, he is well known to me as he is in my patient at the retirement, and I had just seen him most recently as Thursday. GENERAL: He has been declining for the past several months. [address] [address] HISTORY AND PHYSICAL Name: ELIZ GRIFFIN Room #: [address] [place] [address] IN M.R.#: [id number] Admission: 09/14/16 Attend Phys: Machelle Turner MD Discharge: Date of : 29 Report #: [id number] HEENT: Negative. CARDIOVASCULAR: Negative. PULMONARY: Negative. GASTROINTESTINAL: On a pureed diet, nectar-thickened liquids. GENITOURINARY: Incontinent. MUSCULOSKELETAL: Wheelchair bound, but able to transfer independently. NEUROLOGIC: Forgetful due to underlying dementia. LYMPHATICS: Negative. PHYSICAL EXAMINATION: GENERAL: The patient is a frail, elderly -Irish male lying in bed in no apparent distress. VITAL SIGNS: Most recent vital signs reveal temperature of 35.6, pulse of 86, his respiratory rate ranges from 24-32 respirations per minute, blood pressure is 134/92 with oxygen saturation 90%. HEENT: Head is normocephalic, atraumatic. Pupils are equal and reactive. Extraocular muscles are intact. Oropharynx is moist. NECK: Supple. Trachea midline. LUNGS: Grossly clear. CARDIOVASCULAR: Regular rate and rhythm. ABDOMEN: Soft, nontender, nondistended with normoactive bowel sounds. SKIN: Warm and dry. Turgor adequate. LYMPHATICS: No cervical or axillary lymphadenopathy. NEUROLOGIC: He opens his eyes and grunts when questioned as an attempted verbal response with noted right facial droop and right upper and lower extremity deficits. MUSCULOSKELETAL: Chronic degenerative changes, generalized muscular atrophy with 4/5 strength in his left upper and lower extremities and 0/5 strength in his right upper and lower extremities. LABORATORY DATA: Pertinents include chloride of 110, BUN 38, creatinine 2.3, GFR of 33. Troponin 0.12. INR is 1.2. Cholesterol is 109, triglycerides 74, LDL was 40. Hemoglobin is 12.3, hematocrit is 28.8. RADIOGRAPHIC STUDIES: Include CT of the head without contrast showing moderate atrophy without acute cerebral process. Carotid Doppler showing mild right and moderate left bilateral atherosclerotic plaquing without hemodynamically significant stenosis. Portable chest x-ray demonstrated decreased inspiration with diffuse increased chest density suggesting diffuse atelectasis. Possibility of bilateral pneumonitis should also be considered based on findings. ASSESSMENT: 1. Acute left hemispheric cerebrovascular accident with dense right hemiplegia. 2. Hypertension. [address] [address] HISTORY AND PHYSICAL Name: ELIZ GRIFFIN Room #: 450-[facility] IN M.R.#: [id number] Admission: 09/14/16 Attend Phys: Machelle Turner MD Discharge: Date of : 29 Report #: [id number] 3. Oropharyngeal dysphagia. 4. Diabetes mellitus. 5. Alzheimer dementia. PLAN: Continue supportive measures with IV fluids. We will give aspirin suppository. Continue to monitor his blood pressure and initiate Catapres patch for blood pressure control. Continue to monitor his blood sugars. We will hold insulin and given sliding scale insulin as needed. We will apply SCDs for DVT prophylaxis. A lengthy discussion was held with his sister/durable power of city attorney, Ms. Maria Esther Simeon, at phone number [phone]. Discussion was made regarding code status and advanced directive. She states that he does not have advanced directive at this time; however, she prefers that we continue CPR, but do not intubate without plans for any further aggressive treatment. We will honor her wishes and make him full code without intubation. <ELECTRONICALLY SIGNED> By: Machelle Turner MD 09/18/16 1522 1622 01 Machelle Turner MD /nt
--- NOTE | ~2016-09-14 | D ---
[facility] [place] [place] [address] DISCHARGE SUMMARY Name: GABYELIZ Room #: 450-P [facility] IN M.R.#: [id number] Admission: 09/14/16 Attend Phys: Machelle Turner MD Discharge: 09/20/16 Date of : 29 Report #: [id number] THIS REPORT FOR: //name// CC: Machelle Turner MD DATE OF SERVICE: 09/20/2016 Discharge/ Summary SUMMARY OF HISTORY AND PHYSICAL: The patient presented with right-sided deficits and was thought to have a stroke. In the Emergency Room, an acute stroke was confirmed. The family was contacted about consideration for thrombolysis, which they declined. He was given aspirin instead and admitted for further medical management. He had a baseline Alzheimer dementia. Hospital Course: e was seen in Neurology consultation by Dr. Riddle. It was her opinion that he had a large left middle cerebral artery stroke. Dr. Riddle discussed the doubt that he would make a significant recovery, when she talked with the patient's nephew at the time of her consultation. She also noted that he had a baseline Alzheimer dementia. He developed an aspiration pneumonia and acute respiratory failure and was treated with BiPAP under the direction of the Pulmonary service. He improved with BiPAP, which was able to be removed on 09/20/2016. However, his breathing got worse in the middle of the night and BiPAP was restarted. Dr. Riddle noted when she visited him 09/20/2016 that he was struggling to breathe and was breathing at a rate of 53 despite the BiPAP support. He discussed his situation with very poor chance of significant improvement with his sister who is his DPOA. She was amenable to hospice. A second sister was also contacted by the nursing staff. Both sisters wanted nature to take its course, not to use life support and for their brother to be comfortable. I spoke by phone with his nephew, the son of his sister that was his DPOA. He agreed that, both he and his mother felt keeping him comfortable and "letting nature take it's course" were their wishes on his behalf. Hospice palliative care service was consulted. They ordered the BiPAP removed and lorazepam and Roxanol be administered for comfort. He soon thereafter, indicating how much he was relying on the BiPAP. DISCHARGE DIAGNOSES: 1. Acute large left middle cerebral artery stroke. [address] [address] DISCHARGE SUMMARY Name: CARLOTA GRIFFINR Room #: 450-P DIS IN [facility].#: [id number] Admission: 09/14/16 Attend Phys: Machelle Turner MD Discharge: 09/20/16 Date of : 29 Report #: [id number] 2. Acute respiratory failure. 3. Aspiration pneumonia. 4. Baseline Alzheimer disease. 5. Sepsis with lactic acidosis. 6. Type 2 diabetes. 7. Chronic systolic congestive heart failure. 8. Chronic kidney disease stage 4. 9. Atherosclerotic heart disease. 10. Severe pulmonary artery hypertension. By: 0010 0207 Arcadio Goetz MD /nt
--- NOTE | ~2016-09-14 | EKG ---
[address] [address] ELECTROCARDIOGRAM REPORT Name: ELIZ GRIFFIN Room #: 450-P ADM IN M.R.#: [id number] Admission: 09/14/16 Attend Phys: Machelle Turner MD Discharge: Date of : 28 Report #: [id number] THIS REPORT FOR: //name// [facility] ED Test Date: 2016-09-14 Test Time: 06:43:02 Pat Name: EILZ GRIFFIN Department: Room: 450 Gender: M Computer Game Programmer: CIRILO : 1930 Requested By: Jori Lott Order Number: [id number] MD: Monty Braswell Measurements Intervals [place] Rate: 89 P: MA: QRS: -11 QRSD: 97 T: 132 QT: 469 QTc: 571 Interpretive Statements Normal sinus rhythm No ischemic changes Electronically Signed On 09-14-2016 22:36:42 CDT by Monty Braswell [email or web address] <ELECTRONICALLY SIGNED> By: Monty Braswell MD 09/14/16 [id number] MD MADHURI Noble
[~2016-09-14 06:06] MED LIST changes: +AMLODIPINE BESYL5 M1 PO; +AUGMENTIN 500-1 EACH PO; +CARVEDILOL3.125 MG PO; +HUMALOG100 UNIT/1 SUBQ; +VIBRAMYCIN 100100 M2 PO
[2016-09-14 06:31] LABS: POC CA IONIZED 4.3 mg/dL (4.5-5.3); POC CREATININE 2.1 mg/dL (0.6-1.3); POC HEMOGLOBIN 12.9 g/dL (14.0-18.0); POC POTASSIUM 3.8 mmol/L (3.5-5.1)
[2016-09-14 06:41] LABS: HEMATOCRIT 38.8 % (42.0-52.0); HEMOGLOBIN 12.3 gm/dL (14.0-18.0); MCH 27.6 pg (26.0-34.0); MCHC 31.7 g/dL (28.0-37.0); RBC 4.46 mil/uL (4.50-6.00); RDW 17.2 % (10.5-14.5); WBC 7.3 thou/uL (4.0-11.0)
[2016-09-14 06:55] LABS: CALCIUM 8.8 mg/dL (8.5-10.1); CREATININE 2.3 mg/dL (0.7-1.3); POTASSIUM 3.8 mmol/L (3.5-5.1)
[2016-09-14 06:56] LABS: APTT 28.2 Seconds (24.5-32.8); INR 1.2; PROTIME 12.8 Seconds (9.3-11.4)
[2016-09-14 07:00] LABS: URINE BILIRUBIN 1+ (Negative); URINE BLOOD NEGATIVE (Negative); URINE COLOR YELLOW; URINE GLUCOSE-RANDOM* NEGATIVE (Negative); URINE KETONES NEGATIVE (Negative); URINE LEUKOCYTES-REFLEX NEGATIVE (Negative); URINE PROTEIN (DIPSTICK) 2+ (Negative); URINE SPECIFIC GRAVITY >= 1.030 (1.003-1.035)
[2016-09-14 07:03] LABS: TROPONIN-I 0.12 ng/mL (<0.04-0.07)
[2016-09-14] MEDS ORDERED: AMLODIPINE BESY10 MG PO (07:05)
[2016-09-14] MEDS ORDERED: TOPROL XL25 MG PO (07:05)
[2016-09-14 07:06] LABS: ICTOTEST (BILI CONFIRMATORY) Negative (Negative)
[2016-09-14] MEDS ORDERED: GLUCOTROL5 MG PO (07:06)
[2016-09-14 07:09] LABS: HYALINE CASTS 0-3 Few /LPF (None Seen); SQUAMOUS 0-3 Few /LPF (0-3)
[2016-09-14 07:10] LABS: AMORPHOUS URATES Many /LPF (None Seen); URINE RBC None Seen /HPF (0-2); URINE WBC-REFLEX None Seen /HPF (0-5)
[2016-09-14 10:10] VITALS: BP 122/93
[2016-09-14 10:45] VITALS: BP 120/90
[2016-09-14 11:40] LABS: CHOLESTEROL 109 mg/dL (<200); HDL CHOLESTEROL 55 mg/dL (>40); LDL CHOLESTEROL 40 mg/dL (<100); TRIGLYCERIDE 74 mg/dL (<150); VLDL 15 mg/dL (<40)
[2016-09-14 15:15] VITALS: BP 134/92
[2016-09-14 19:21] VITALS: BP 144/117
[2016-09-14 21:00] LABS: ABG SAMPLE TYPE ARTERIAL; BE(vivo) -3.3 mmol/L (-2 to +3); HCO3 17.9 mmol/L (22.0-26.0); LACTATE 3.24 mmol/L (0.5-2.0); O2(CT) 14.2 mL/dL (15.0-23.0); pH 7.512 (7.360-7.450); sO2 82.5 % (92.0-98.0); tCO2 18.6 mmol/L (24.0-30.0)
[2016-09-14 21:01] LABS: O2Hb 77.6 % (92.0-98.0); PCO2 22.8 mmHg (35.0-45.0); PO2 40.7 mmHg (80.0-100.0); STICK SITE R.BRACHIAL
[2016-09-14 21:14] VITALS: BP 178/109
[2016-09-14 23:45] VITALS: BP 151/124
[2016-09-15 03:20] VITALS: BP 146/86
[2016-09-15 06:20] LABS: HEMATOCRIT 37.2 % (42.0-52.0); HEMOGLOBIN 11.9 gm/dL (14.0-18.0); MCHC 32.1 g/dL (28.0-37.0); MCV 87.2 fL (80.0-100.0); PLATELET COUNT 250 thou/uL (150-400); RBC 4.26 mil/uL (4.50-6.00); RDW 17.6 % (10.5-14.5); WBC 9.3 thou/uL (4.0-11.0)
[2016-09-15 06:33] LABS: MANUAL DIFF YES
[2016-09-15 06:35] LABS: ALBUMIN 2.6 g/dL (3.4-5.0); ALKALINE PHOSPHATASE 90 U/L (46-116); ANION GAP 16 mmol/L (7-16); BUN 39 mg/dL (7-18); CALCIUM 8.5 mg/dL (8.5-10.1); CHLORIDE 113 mmol/L (98-107); CO2 21 mmol/L (21-32); CREATININE 2.4 mg/dL (0.7-1.3); GLUCOSE 144 mg/dL (74-106); POTASSIUM 4.5 mmol/L (3.5-5.1); SGOT 17 U/L (15-37); SODIUM 150 mmol/L (136-145); TOTAL BILIRUBIN 0.6 mg/dL (<0.1-1.0); TOTAL PROTEIN 7.7 g/dL (6.4-8.2)
[2016-09-15 06:39] LABS: ABG SAMPLE TYPE ARTERIAL; BE(vivo) -3.1 mmol/L (-2 to +3); O2Hb 93.2 % (92.0-98.0); PCO2 34.5 mmHg (35.0-45.0); PO2 74.6 mmHg (80.0-100.0); Pressure Support 6 cm H20; STICK SITE R.BRACHIAL; pH 7.402 (7.360-7.450); sO2 95.2 % (92.0-98.0)
[2016-09-15 06:45] LABS: SGPT < 6 U/L (30-65)
[2016-09-15 08:12] VITALS: BP 123/77
[2016-09-15 08:42] LABS: ABSOLUTE NEUTROPHILS 8.1 thou/uL (1.4-8.2); TOTAL CELL COUNT 100
[2016-09-15 08:43] LABS: ANISOCYTOSIS 1+
[2016-09-15 12:06] VITALS: BP 117/85
[2016-09-15 16:00] VITALS: BP 130/97
[2016-09-15 19:15] VITALS: BP 146/86
[2016-09-16 03:35] VITALS: BP 130/78
[2016-09-16 06:02] LABS: HEMATOCRIT 34.7 % (42.0-52.0); MCH 27.7 pg (26.0-34.0); MCHC 31.8 g/dL (28.0-37.0); RBC 3.99 mil/uL (4.50-6.00); RDW 17.3 % (10.5-14.5); WBC 7.9 thou/uL (4.0-11.0)
[2016-09-16 06:22] LABS: CALCIUM 8.1 mg/dL (8.5-10.1); CREATININE 2.9 mg/dL (0.7-1.3); POTASSIUM 4.3 mmol/L (3.5-5.1)
[2016-09-16 07:06] VITALS: BP 131/90
[2016-09-16 12:54] VITALS: BP 126/85
[2016-09-16 16:13] VITALS: BP 124/72
[2016-09-16 16:42] VITALS: BP 135/80
[2016-09-16 20:00] VITALS: BP 149/91
[2016-09-17 03:38] VITALS: BP 124/89
[2016-09-17 06:04] LABS: CALCIUM 7.9 mg/dL (8.5-10.1); POTASSIUM 4.1 mmol/L (3.5-5.1)
[2016-09-17 08:29] VITALS: BP 125/83
[2016-09-17 11:48] VITALS: BP 116/81
[2016-09-17 16:07] VITALS: BP 125/86
[2016-09-17 19:17] VITALS: BP 128/90
[2016-09-18 03:24] VITALS: BP 130/80
[2016-09-18 05:55] LABS: HEMATOCRIT 41.1 % (42.0-52.0); HEMOGLOBIN 12.9 gm/dL (14.0-18.0); MCH 27.6 pg (26.0-34.0); MCHC 31.5 g/dL (28.0-37.0); MCV 87.6 fL (80.0-100.0); PLATELET COUNT 253 thou/uL (150-400); RBC 4.69 mil/uL (4.50-6.00); RDW 17.6 % (10.5-14.5); WBC 10.7 thou/uL (4.0-11.0)
[2016-09-18 06:07] LABS: MANUAL DIFF YES
[2016-09-18 07:19] LABS: ABSOLUTE NEUTROPHILS 10.2 thou/uL (1.4-8.2); TOTAL CELL COUNT 100
[2016-09-18 07:21] LABS: ABG SAMPLE TYPE ARTERIAL; BE(vivo) -6.5 mmol/L (-2 to +3); HCO3 18.3 mmol/L (22.0-26.0); LACTATE 2.16 mmol/L (0.5-2.0); O2(CT) 17.8 mL/dL (15.0-23.0); O2Hb 96.1 % (92.0-98.0); PO2 97.4 mmHg (80.0-100.0); Pressure Support 6 cm H20; STICK SITE L.BRACHIAL; pH 7.348 (7.360-7.450); sO2 97.2 % (92.0-98.0); tCO2 19.3 mmol/L (24.0-30.0)
[2016-09-18 07:21] LABS: ANISOCYTOSIS 1+; BURR CELLS FEW
[2016-09-18 08:31] VITALS: BP 133/86
[2016-09-18 12:26] VITALS: BP 120/80
[2016-09-18 16:30] VITALS: BP 128/89
[2016-09-18 19:34] VITALS: BP 156/110
[2016-09-19 00:04] VITALS: BP 122/87
[2016-09-19 03:15] VITALS: BP 137/93
[2016-09-19 06:25] LABS: HEMATOCRIT 37.8 % (42.0-52.0); MCH 27.8 pg (26.0-34.0); MCHC 31.8 g/dL (28.0-37.0); MCV 87.4 fL (80.0-100.0); RBC 4.33 mil/uL (4.50-6.00); WBC 11.2 thou/uL (4.0-11.0)
[2016-09-19 06:39] LABS: ALBUMIN 1.9 g/dL (3.4-5.0); CALCIUM 8.3 mg/dL (8.5-10.1); CREATININE 3.2 mg/dL (0.7-1.3); TOTAL BILIRUBIN 0.5 mg/dL (<0.1-1.0); TOTAL PROTEIN 6.6 g/dL (6.4-8.2)
[2016-09-19 07:05] VITALS: BP 131/86
[2016-09-19 12:21] VITALS: BP 138/83
[2016-09-19 15:02] LABS: ABG SAMPLE TYPE ARTERIAL; BE(vivo) -5.8 mmol/L (-2 to +3); HCO3 18.9 mmol/L (22.0-26.0); O2(CT) 16.6 mL/dL (15.0-23.0); O2Hb 91.3 % (92.0-98.0); PCO2 34.6 mmHg (35.0-45.0); PO2 69.4 mmHg (80.0-100.0); pH 7.356 (7.360-7.450); sO2 93.4 % (92.0-98.0)
[2016-09-19 15:03] LABS: STICK SITE R.RADIAL
[2016-09-19 15:35] VITALS: BP 136/91
[2016-09-19 19:26] VITALS: BP 143/84
[2016-09-20 03:59] VITALS: BP 132/91
[2016-09-20 07:55] VITALS: BP 149/95
[2016-09-20 11:51] VITALS: BP 148/105
== END 2016-09-20 15:20 | DRG 871 ==
LOC: ER 06:06 → 4W 09:06 → EROBS 09:06 → 4W 10:19
PROVIDERS: Emergency Medicine; Internal Medicine; Internal Medicine Pulmonary Disease; Psychiatry & Neurology Neurology
PROC: 5A09357 Assistance with Respiratory Ventilation, Less than 24 Consecutive Hours, Continuous Positive Airway Pressure (ICD-10-PCS; principal; 2016-09-15)
DX: A41.9 Sepsis, unspecified organism (principal); J69.0 Pneumonitis due to inhalation of food and vomit; I63.9 Cerebral infarction, unspecified; I50.43 Acute on chronic combined systolic (congestive) and diastolic (congestive) heart failure; J96.01 Acute respiratory failure with hypoxia; I42.9 Cardiomyopathy, unspecified; I13.0 Hypertensive heart and chronic kidney disease with heart failure and stage 1 through stage 4 chronic kidney disease, or unspecified chronic kidney disease; N18.4 Chronic kidney disease, stage 4 (severe); E87.2 Acidosis; N17.9 Acute kidney failure, unspecified; G81.91 Hemiplegia, unspecified affecting right dominant side; G30.9 Alzheimer's disease, unspecified; E11.22 Type 2 diabetes mellitus with diabetic chronic kidney disease; F02.80 Dementia in other diseases classified elsewhere, unspecified severity, without behavioral disturbance, psychotic disturbance, mood disturbance, and anxiety; E78.5 Hyperlipidemia, unspecified; F32.9 Major depressive disorder, single episode, unspecified; F41.9 Anxiety disorder, unspecified; I25.10 Atherosclerotic heart disease of native coronary artery without angina pectoris; K59.00 Constipation, unspecified; E87.8 Other disorders of electrolyte and fluid balance, not elsewhere classified; D64.9 Anemia, unspecified; I27.2 Other secondary pulmonary hypertension; R13.12 Dysphagia, oropharyngeal phase; E86.9 Volume depletion, unspecified; Z86.14 Personal history of Methicillin resistant Staphylococcus aureus infection; Z79.82 Long term (current) use of aspirin; Z79.899 Other long term (current) drug therapy; Z66 Do not resuscitate; Z51.5 Encounter for palliative care
CPT/HCPCS: 10045